=== PATIENT | female | born 1950 | race Caucasian/White ===

== ENCOUNTER 2017-08-15 12:45 | Emergency (ER) | payer OTHER ==
[~2017-08-15] VITALS: Ht 160 cm; Wt 104.3 kg
[2017-08-15 14:13] LABS: HEMATOCRIT 39.4 % (36.0-46.0); HEMOGLOBIN 13.4 G/DL (11.9-15.5); MCH 28.9 PG (29.0-34.0); MCV 84.9 FL (83-99); PLATELET COUNT 227 K/uL (156-360); RBC DIS.WIDTH-CV 12.3 % (11.8-14.6); RBC DIS.WIDTH-SD 37.9 % (39-53); RED BLOOD COUNT 4.64 M/uL (3.80-5.20); WHITE BLOOD COUNT 8.9 K/uL (4.1-10.2)
[2017-08-15 14:23] LABS: CHLORIDE 101 mEq/L (99-109); POTASSIUM 3.7 mEq/L (3.7-5.4); SODIUM 135 mEq/L (136-147)
[2017-08-15 14:24] LABS: GLUCOSE 109 mg/dL (70-99)
[2017-08-15 14:28] LABS: CREATININE 1.1 mg/dL (0.6-1.3); GFR ESTIMATE (CALCULATED) 53 mL/min/
[2017-08-15 14:29] LABS: UREA NITROGEN (BUN) 15 mg/dL (9-23)
[2017-08-15 14:32] LABS: TROP-I INTERPRETATION NEGATIVE; TROPONIN-I < 0.01 ng/mL (0.0-0.30)
[2017-08-15] MEDS ORDERED: TOPROL XL25 MG PO (15:19)
[2017-08-15 16:13] VITALS: BP 159/85
== END 2017-08-15 16:15 | disposition home or self-care (01) ==
LOC: EME 12:45
PROVIDERS: Nurse Practitioner Family
DX: I49.3 Ventricular premature depolarization (principal); R05 Cough
CPT/HCPCS: 71046; 80048; 84484; 85027; 93005; 99281; 99284